=== PATIENT | male | born 1960 | race Caucasian/White ===

== ENCOUNTER 2016-11-04 20:04 | Emergency (ER) | payer MEDICARE, OTHER ==
[2016-11-04 21:03] VITALS: BP 150/86
[2016-11-04] MEDS ORDERED: HYDROcodone/ACETAMIN 5-325 MG* 1 TAB PO ONE (22:08)
[2016-11-04] MEDS ORDERED: Indomethacin CAP* 50 MG PO ONE (22:08)
[2016-11-04] MEDS ORDERED: Indomethacin CAP* 25 MG CAP ONE (22:13)
--- NOTE | 2016-11-04 22:14 | UC ---
Lower Extremity/Ankle HPI - HPI Summary HPI Summary: foot pain right side. Woke with it yesterday, no injury, today excruciating. Can 't stand the lightest touch on it. No break in skin. No prior similar pain. No other musculoskeletal complaint - History of Current Complaint Chief Complaint: UCLowerExtremity Stated Complaint: RT FOOT PAIN Time Seen by Provider: 11/04/16 22:02 Hx Obtained From: Patient Onset/Duration: Sudden Onset, Lasting Days - 2 Severity Initially: Moderate Severity Currently: Severe Aggravating Factor(s): Standing, Ambulation Alleviating Factor(s): Rest, Elevation Able to Bear Weight: Yes - but severe limping - Risk Factors Gout Risk Factors: Age Over 40, Male, Diabetes, Hyperlipidemia, Obesity DVT Risk Factors: Negative Septic Arthritis Risk Factor: Negative - Allergies/Home Medications Allergies/Adverse Reactions: Allergies Allergy/AdvReac Type Severity Reaction Status Date / Time Cheese Allergy Airway Verified 11/04/16 21:03 Obstruction Sulfa Drugs Allergy Difficulty Verified 11/04/16 21:03 Breathing Home Medications: Home Medications Acetaminop/Codeine 30 MG TAB* [Tylenol/Codeine 30 MG TAB*] 1 tab PO Q6H PRN [History Confirmed 11/04/16] PMH/Surg Hx/FS Hx/Imm Hx Endocrine History Of: Reports: Diabetes, Thyroid Disease - hypothyroidism Cardiovascular History Of: Reports: Cardiac Disorders - Pacemaker, Quadruple Bypass Respiratory History Of: Reports: COPD - Surgical History Surgical History: Yes Surgery Procedure, Year, and Place: Pacemaker, 2003, [facility]; Quaduple Bypass, 1998, [facility]; Spleenectomy, 1997, [facility]; Stribismus Repairs, ~60's and 70's - Family History Known Family History: Positive: Cardiac Disease Negative: Other - NO HISTORY OF GOUT - Social History Occupation: Disabled Lives: With Family Alcohol Use: Occasionally Substance Use Type: None Smoking Status (MU): Former Smoker Type: Cigarettes Length of Time of Smoking/Using Tobacco: 10 yrs Have You Smoked in the Last Year: No When Did the Patient Quit Smoking/Using Tobacco: 1999 Review of Systems Constitutional: Negative Skin: Negative Eyes: Negative ENT: Negative Respiratory: Negative Cardiovascular: Negative Gastrointestinal: Negative Genitourinary: Negative Motor: Negative Neurovascular: Negative Musculoskeletal: Arthralgia - right foot Neurological: Negative Psychological: Negative All Other Systems Reviewed And Are Negative: Yes Physical Exam Triage Information Reviewed: Yes Appearance: Well-Appearing, No Pain Distress, Well-Nourished, Obese Vital Signs: Initial Vital Signs Temp 98.9 F 11/04/16 20:56 Pulse 86 11/04/16 20:56 Resp 20 11/04/16 20:56 BP 150/86 11/04/16 20:56 Pulse Ox 93 11/04/16 20:56 Vital Signs Reviewed: Yes Eye Exam: Normal Neck exam: Normal Respiratory Exam: Normal Cardiovascular Exam: Normal Musculoskeletal Exam: Normal Neurological Exam: Normal Psychological Exam: Normal Skin Exam: Normal Lower Extremity Course/Dx - Differential Dx/Diagnosis Differential Diagnosis/HQI/PQRI: Fracture (Closed), Gout, Infection Provider Diagnoses: gout Discharge - Discharge Plan Condition: Stable Disposition: HOME Prescriptions: HYDROcodone/ACETAMIN 5-325 MG* [Hooks 5-325 TAB*] 1 - 2 tab PO Q6H PRN #20 tab MDD 6 tab PRN Reason: Pain Indomethacin CAP* [Indocin CAP*] 50 mg PO TID PRN #30 cap PRN Reason: foot pain Patient Education Materials: Gout (ED) Referrals: Joselyn Eckert MD [Primary Care Provider] -
== END 2016-11-04 22:22 | disposition home or self-care (01) ==
LOC: UCCORT 20:04
DX: M10.9 Gout, unspecified (principal); E66.9 Obesity, unspecified; Z95.0 Presence of cardiac pacemaker; Z95.1 Presence of aortocoronary bypass graft; Z87.891 Personal history of nicotine dependence
CPT/HCPCS: 99213; A9270-GY; G0463

== ENCOUNTER 2017-05-13 13:15 | Emergency (ER) | payer MEDICARE, MEDICAID ==
[2017-05-13 13:27] VITALS: BP 80/52
--- NOTE | 2017-05-13 14:05 | UC ---
Respiratory Complaint HPI - HPI Summary HPI Summary: cough x 3 days cough is dry , no upper resp. sx, no fever, no chills, no sob - History of Current Complaint Chief Complaint: UCRespiratory Stated Complaint: COUGH Time Seen by Provider: 05/13/17 13:47 Hx Obtained From: Patient Onset/Duration: Gradual Onset, Lasting Days - 3, Still Present Timing: Constant Severity Initially: Severe Severity Currently: Severe Character: Cough: Nonproductive Aggravating Factors: Exertion, Deep Breaths Alleviating Factors: Nothing Associated Signs And Symptoms: Negative: Dyspnea, Fever, Chills, Pleuritic Chest Pain, Wheezing, Hemoptysis, Dizziness, Calf Pain, Calf Swelling, Edema, URI, Nasal Congestion, Hoarseness, Sinus Discomfort - Allergies/Home Medications Allergies/Adverse Reactions: Allergies Allergy/AdvReac Type Severity Reaction Status Date / Time Cheese Allergy Airway Verified 05/13/17 13:20 Obstruction Penicillins Allergy Airway Verified 05/13/17 13:20 Obstruction Sulfa Drugs Allergy Difficulty Verified 05/13/17 13:20 Breathing PMH/Surg Hx/FS Hx/Imm Hx Previously Healthy: Yes Endocrine History: Diabetes Cardiovascular History: Cardiac Disease Respiratory History: COPD, Asthma - Surgical History Surgical History: Yes Surgery Procedure, Year, and Place: Pacemaker, 2003, [facility]; Quaduple Bypass, 1998, [facility]; Spleenectomy, 1997, [facility]; Stribismus Repairs, ~60's and 70's - Family History Known Family History: Positive: Cardiac Disease Negative: Other - NO HISTORY OF GOUT - Social History Alcohol Use: Occasionally Substance Use Type: None Smoking Status (MU): Former Smoker Type: Cigarettes Length of Time of Smoking/Using Tobacco: 10 yrs Have You Smoked in the Last Year: No When Did the Patient Quit Smoking/Using Tobacco: 25 years ago Review of Systems Constitutional: Negative Skin: Negative Eyes: Negative ENT: Negative Respiratory: Cough Cardiovascular: Negative Gastrointestinal: Negative All Other Systems Reviewed And Are Negative: Yes Physical Exam Triage Information Reviewed: Yes Appearance: Well-Appearing, No Pain Distress, Well-Nourished Vital Signs: Initial Vital Signs Temp 97.5 F 05/13/17 13:22 Pulse 83 05/13/17 13:22 Resp 20 05/13/17 13:22 BP 80/52 05/13/17 13:22 Pulse Ox 97 05/13/17 13:22 Vital Signs Reviewed: Yes Eyes: Positive: Conjunctiva Clear ENT: Positive: Normal ENT inspection, Hearing grossly normal, Pharynx normal Neck: Positive: Supple, Nontender, No Lymphadenopathy Respiratory: Positive: Chest non-tender, No accessory muscle use, Wheezing, Other: - dry hacking cough Cardiovascular: Positive: RRR, No Murmur, Pulses Normal Musculoskeletal Exam: Normal UC Diagnostic Evaluation - Laboratory O2 Sat by Pulse Oximetry: 97 Respiratory Course/Dx - Differential Dx/Diagnosis Provider Diagnoses: Bronchitis Discharge - Discharge Plan Condition: Stable Disposition: HOME Prescriptions: Azithromycin TAB* [Zithromax TAB (Z-DAVID) 250 mg #6 tabs] 2 tab PO .TODAY, THEN 1 DAILY #1 david Benzonatate [TESSALON 200 MG CAP] 200 mg PO Q8H #21 cap Guaifenesin-Codeine [Cheratussin AC] 10 ml PO Q8H #120 ml MDD 30 ml predniSONE TAB* [Deltasone TAB*] 40 mg PO DAILY #10 tab Patient Education Materials: Acute Bronchitis (ED) Referrals: Joselyn Eckert MD [Primary Care Provider] - 7 Days
== END 2017-05-13 14:20 | disposition home or self-care (01) ==
LOC: UCCORT 13:15
DX: J40 Bronchitis, not specified as acute or chronic (principal); E11.9 Type 2 diabetes mellitus without complications; I51.9 Heart disease, unspecified; J44.9 Chronic obstructive pulmonary disease, unspecified; Z88.0 Allergy status to penicillin; Z88.2 Allergy status to sulfonamides; Z87.891 Personal history of nicotine dependence
CPT/HCPCS: 99212; G0463

== ENCOUNTER 2018-09-10 15:50 | Emergency (ER) | payer MEDICARE, MEDICAID ==
[2018-09-10 16:47] VITALS: BP 129/69
--- NOTE | 2018-09-10 17:27 | UC ---
Knee Pain HPI - HPI Summary HPI Summary: Pt presents with c/o sudden onset of right knee pain that began early this morning at ~ 0100. Pt denies injury or hx of injury. Pt described pain as worse pain of his life. Pt drove self to clinic. - History of Current Complaint Chief Complaint: UCLowerExtremity Stated Complaint: RIGHT KNEE PAIN Time Seen by Provider: 09/10/18 17:17 Hx Obtained From: Patient Onset/Duration: Sudden Onset, Lasting Hours, Still Present Severity Initially: Severe Severity Currently: Severe Pain Intensity: 9 Character: Sharp, Aching Aggravating Factor(s): Movement, Weight Bearing, Prolonged Standing, Stairs Alleviating Factor(s): Nothing Associated Signs And Symptoms: Positive: Negative Able to Bear Weight: Yes - Risk Factors Septic Arthritis Risk Factor: Negative Gout Risk Factor: Male - Allergies/Home Medications Allergies/Adverse Reactions: Allergies Allergy/AdvReac Type Severity Reaction Status Date / Time cheese Allergy Airway Verified 09/10/18 16:30 Obstruction Penicillins Allergy Airway Verified 09/10/18 16:30 Obstruction Sulfa (Sulfonamide Allergy Difficulty Verified 09/10/18 16:30 Antibiotics) Breathing Home Medications: Home Medications Benzonatate [TESSALON 200 MG CAP] 200 mg PO Q8H PRN 09/10/18 [History Confirmed 09/10/18] Codeine Phosphate/Guaifenesin [Cheratussin AC] 10 ml PO Q8H PRN MDD 30 ml [History Confirmed 09/10/18] Fenofibrate 40 mg PO BEDTIME 09/10/18 [History Confirmed 09/10/18] Lisinopril [Zestril] 10 mg PO DAILY 09/10/18 [History Confirmed 09/10/18] Metoprolol Tartrate TAB* [Lopressor TAB*] 50 mg PO DAILY 09/10/18 [History Confirmed 09/10/18] Simvastatin 20 mg PO BEDTIME 09/10/18 [History Confirmed 09/10/18] Trazodone HCl 150 mg PO BEDTIME 09/10/18 [History Confirmed 09/10/18] PMH/Surg Hx/FS Hx/Imm Hx Previously Healthy: No Cardiovascular History: Cardiac Disease, Hypertension, Pacemaker/ICD - Surgical History Surgical History: Yes Surgery Procedure, Year, and Place: Pacemaker, 2003, [facility]; Quaduple Bypass, 1998, [facility] [place]; Spleenectomy, 1997, [facility]; Stribismus Repairs, ~60's and 70's - Family History Known Family History: Positive: Cardiac Disease Negative: Other - NO HISTORY OF GOUT - Social History Occupation: Unemployed Lives: Alone Alcohol Use: Rare Substance Use Type: None Smoking Status (MU): Former Smoker Type: Cigarettes Length of Time of Smoking/Using Tobacco: 10 yrs Have You Smoked in the Last Year: No When Did the Patient Quit Smoking/Using Tobacco: 25 years ago Review of Systems All Other Systems Reviewed And Are Negative: Yes Constitutional: Positive: Negative Skin: Positive: Negative Eyes: Positive: Negative ENT: Positive: Negative Respiratory: Positive: Negative Cardiovascular: Positive: Negative Gastrointestinal: Positive: Negative Genitourinary: Positive: Negative Motor: Positive: Negative Neurovascular: Positive: Negative Musculoskeletal: Positive: Arthralgia - right lateral knee, Edema - right lower extremity. Pre-existing at base line, Myalgia - right lateral knee Neurological: Positive: Negative Psychological: Positive: Negative Is Patient Immunocompromised?: No Physical Exam Triage Information Reviewed: Yes Appearance: Well-Appearing Vital Signs: Initial Vital Signs Temp 98.1 F 09/10/18 16:41 Pulse 75 09/10/18 16:41 Resp 20 09/10/18 16:41 BP 129/69 09/10/18 16:41 Pulse Ox 95 09/10/18 16:41 Vital Signs Reviewed: Yes Eye Exam: Normal ENT Exam: Normal ENT: Positive: Hearing grossly normal Neck exam: Normal Respiratory: Positive: No respiratory distress Musculoskeletal Exam: Normal Musculoskeletal: Positive: Strength Intact, ROM Intact, Edema @ - non pitting right lower extremity. Pre-existing at base line, Other: - c/o right lateral knee pain and posterior calf tenderness Neurological Exam: Normal Psychological Exam: Normal Skin Exam: Normal, Other - no erythema Knee Pain Course/Dx - Course Course Of Treatment: Pt was advised to go to closest ER for further evaluation and testing. Pt verbalized understanding and agreed to plan of care. - Differential Dx/Diagnosis Differential Diagnosis/HQI/PQRI: Bursitis, DVT Provider Diagnosis: Right knee pain Discharge - Sign-Out/Discharge Documenting (check all that apply): Patient Departure All imaging exams completed and their final reports reviewed: No Studies - Discharge Plan Condition: Stable Disposition: HOME-RECOMMEND TO ED Patient Education Materials: Knee Pain (ED) Referrals: Mona Craven MD [Primary Care Provider] - As Soon As Possible Additional Instructions: PLEASE GO DIRECTLY TO THE CLOSEST EMERGENCY ROOM FOR FURTHER EVALUATION AND TESTING. - Billing Disposition and Condition Condition: STABLE Disposition: Home-Recommend to ED
== END 2018-09-10 17:35 | disposition home health service (06) ==
LOC: UCCORT 15:50
DX: M25.561 Pain in right knee (principal); Z88.0 Allergy status to penicillin; Z88.2 Allergy status to sulfonamides; I10 Essential (primary) hypertension; I51.9 Heart disease, unspecified; Z95.811 Presence of heart assist device; Z87.891 Personal history of nicotine dependence
CPT/HCPCS: 99212; G0463

== ENCOUNTER 2018-12-16 15:07 | Emergency (ER) | payer MEDICARE, MEDICAID ==
[2018-12-16 15:27] VITALS: BP 161/96
--- NOTE | 2018-12-16 15:49 | UC ---
Skin Complaint HPI - HPI Summary HPI Summary: Patient has had a paronychia of his distal left index finger over the past week. He was seen in the emergency room however was told that it was not ready to be incised. Today it's more swollen, tender and with exudate underneath the skin. - History of Current Complaint Chief Complaint: UCUpperExtremity Time Seen by Provider: 12/16/18 15:32 Stated Complaint: LEFT POINTER FINGER CONCERN Hx Obtained From: Patient Onset/Duration: Gradual Onset Skin Exposure Onset/Duration: Days Ago - 1 week ago started developing. Timing: Constant Onset Severity: Mild Current Severity: Moderate Pain Intensity: 5 Location: Discrete - Distal left index finger. Character: Swelling, Pain, Redness Aggravating Factor(s): Touch Alleviating Factor(s): Nothing Associated Signs & Symptoms: Positive: Negative - Allergy/Home Medications Allergies/Adverse Reactions: Allergies Allergy/AdvReac Type Severity Reaction Status Date / Time cheese Allergy Airway Verified 09/10/18 16:30 Obstruction Penicillins Allergy Airway Verified 09/10/18 16:30 Obstruction Sulfa (Sulfonamide Allergy Difficulty Verified 09/10/18 16:30 Antibiotics) Breathing Home Medications: Home Medications Canagliflozin (NF) [Invokana (NF)] 100 mg PO DAILY 12/16/18 [History Confirmed 12/16/18] PMH/Surg Hx/FS Hx/Imm Hx Previously Healthy: Yes - Surgical History Surgical History: Yes Surgery Procedure, Year, and Place: Pacemaker, 2003, [facility]; Quaduple Bypass, 1998, [facility]; Spleenectomy, 1997, [facility]; Stribismus Repairs, ~60's and 70's - Family History Known Family History: Positive: Cardiac Disease Negative: Other - NO HISTORY OF GOUT - Social History Alcohol Use: Rare Substance Use Type: None Smoking Status (MU): Former Smoker Type: Cigarettes Length of Time of Smoking/Using Tobacco: 10 yrs Have You Smoked in the Last Year: No When Did the Patient Quit Smoking/Using Tobacco: 25 years ago Review of Systems All Other Systems Reviewed And Are Negative: Yes Constitutional: Positive: Negative Skin: Positive: Other - Paronychia left index finger with swelling, erythema, tenderness on palpation. Eyes: Positive: Negative Motor: Positive: Negative Neurovascular: Positive: Negative Musculoskeletal: Positive: Other: - Swelling of the distal left index finger. Neurological: Positive: Negative Psychological: Positive: Negative Is Patient Immunocompromised?: No Physical Exam Triage Information Reviewed: Yes Appearance: Well-Appearing, No Pain Distress, Well-Nourished Vital Signs: Initial Vital Signs Temp 98 F 12/16/18 15:25 Pulse 76 12/16/18 15:25 Resp 18 12/16/18 15:25 BP 161/96 12/16/18 15:25 Pulse Ox 97 12/16/18 15:25 Vital Signs Reviewed: Yes Musculoskeletal Exam: Normal Musculoskeletal: Positive: Strength Intact, ROM Intact, Other: - The peripheral pulses neuro sensation Refill. Neurological Exam: Normal Neurological: Positive: Alert, Muscle Tone Normal Psychological Exam: Normal Skin: Positive: Other - Significant for a paronychia left distal index finger with swelling, erythema and tenderness on palpation. Procedures - Incision and Drainage Left Distal Finger Anesthesia: Other - area was cleansed with Betadine. It was then incised using the #11 blade and yellow pus was drained. Band-Aid was applied. Patient tolerated procedure well. Instrument(s): Scalpel, Other - #11 scalpel Course/Dx - Course Course Of Treatment: He has been comfortable here. He has had a paronychia developing over the past week. I incised and drained that here. He is to continue with warm salt water soaks 4-6 times a day with a definite recheck with his primary care provider if no improvement or worsening symptoms. - Diagnoses Provider Diagnosis: Paronychia of finger Discharge - Sign-Out/Discharge Documenting (check all that apply): Patient Departure All imaging exams completed and their final reports reviewed: No Studies - Discharge Plan Condition: Good Disposition: HOME Patient Education Materials: Paronychia (ED) Referrals: Mona Benton NP [Primary Care Provider] - Additional Instructions: Elevate as much as possible, continue warm salt water soaks 4-6 times a day. Take Tylenol for pain or Motrin. Follow-up with your primary care provider if no improvement in 3 or 4 days. If he develops any red streaks up her hand, fever or chills go to the emergency room. - Billing Disposition and Condition Condition: GOOD Disposition: Home
== END 2018-12-16 15:47 | disposition home or self-care (01) ==
LOC: UCCORT 15:07
DX: L03.012 Cellulitis of left finger (principal); Z88.2 Allergy status to sulfonamides; Z88.0 Allergy status to penicillin; Z91.011 Allergy to milk products; Z87.891 Personal history of nicotine dependence
CPT/HCPCS: 10060; 99211; G0463

== ENCOUNTER 2019-05-13 19:19 | Emergency (ER) | payer MEDICARE, MEDICAID ==
[2019-05-13 19:53] VITALS: BP 166/91
--- NOTE | 2019-05-13 20:01 | UC ---
Respiratory Complaint HPI - HPI Summary HPI Summary: Pt presents with c/o worsening cough, upper respiratory congestion, malasie X 1 week. Pt has hx of DM, CAD, emphysema, and splenectomy. - History of Current Complaint Chief Complaint: UCRespiratory Stated Complaint: COUGH,CONGESTION Time Seen by Provider: 05/13/19 19:56 Hx Obtained From: Patient Onset/Duration: Gradual Onset, Lasting Weeks, Still Present Timing: Constant Severity Initially: Mild Severity Currently: Moderate Pain Intensity: 1 Character: Cough: Nonproductive Aggravating Factors: Deep Breaths, Recumbent Position Alleviating Factors: Nothing Associated Signs And Symptoms: Positive: Wheezing, Nasal Congestion - Risk Factors Pulmonary Embolism Risk Factors: Negative Cardiac Risk Factors: Diabetes, Prior AL, CAD Pseudomonas Risk Factors: Chronic Lung Disease Tuberculosis Risk Factors: Immune Deficienty - Allergies/Home Medications Allergies/Adverse Reactions: Allergies Allergy/AdvReac Type Severity Reaction Status Date / Time cheese Allergy Airway Verified 05/13/19 19:46 Obstruction Penicillins Allergy Airway Verified 05/13/19 19:46 Obstruction Sulfa (Sulfonamide Allergy Difficulty Verified 05/13/19 19:46 Antibiotics) Breathing PMH/Surg Hx/FS Hx/Imm Hx Previously Healthy: No Endocrine History: Diabetes, Dyslipidemia Cardiovascular History: Cardiac Disease, Pacemaker/ICD Respiratory History: Other - emphysema - Surgical History Surgical History: Yes Surgery Procedure, Year, and Place: Pacemaker, 2003, [facility]; Quaduple Bypass, 1998, [facility]; Spleenectomy, 1997, [facility]; Stribismus Repairs, ~60's and 70's - Family History Known Family History: Positive: Cardiac Disease Negative: Other - NO HISTORY OF GOUT - Social History Occupation: Disabled Lives: With Family Alcohol Use: None Substance Use Type: None Smoking Status (MU): Former Smoker Type: Cigarettes Length of Time of Smoking/Using Tobacco: 10 yrs Have You Smoked in the Last Year: No When Did the Patient Quit Smoking/Using Tobacco: 25 years ago Review of Systems All Other Systems Reviewed And Are Negative: Yes Constitutional: Positive: Fatigue Skin: Positive: Negative Eyes: Positive: Negative ENT: Positive: Sinus Congestion Respiratory: Positive: Shortness Of Breath, Cough Cardiovascular: Positive: Negative Gastrointestinal: Positive: Negative Genitourinary: Positive: Negative Motor: Positive: Negative Neurovascular: Positive: Negative Musculoskeletal: Positive: Negative Neurological: Positive: Negative Psychological: Positive: Negative Is Patient Immunocompromised?: No Physical Exam Triage Information Reviewed: Yes Appearance: Ill-Appearing Vital Signs: Initial Vital Signs Temp 99.1 F 05/13/19 19:47 Pulse 85 05/13/19 19:47 Resp 18 05/13/19 19:47 BP 166/91 05/13/19 19:47 Pulse Ox 97 05/13/19 19:47 Vital Signs Reviewed: Yes Eye Exam: Normal ENT: Positive: Nasal congestion Dental Exam: Normal Neck exam: Normal Respiratory: Positive: Decreased breath sounds, Wheezing Cardiovascular Exam: Normal Musculoskeletal Exam: Normal Neurological Exam: Normal Psychological Exam: Normal Skin Exam: Normal Respiratory Course/Dx - Course Course Of Treatment: Due to pt's PMH, I discussed the use of antibiotics due to risk of infection. - Differential Dx/Diagnosis Differential Diagnosis/HQI/PQRI: Bronchitis, Exacerbation Of COPD Provider Diagnosis: Bronchitis Discharge - Sign-Out/Discharge Documenting (check all that apply): Patient Departure All imaging exams completed and their final reports reviewed: No Studies - Discharge Plan Condition: Stable Disposition: HOME Prescriptions: DOXYcycline CAP(*) [DOXYcycline 100MG CAP(*)] 100 mg PO Q12H #20 cap Patient Education Materials: Acute Bronchitis (ED) Referrals: Mona Benton NP [Primary Care Provider] - If Needed - Billing Disposition and Condition Condition: STABLE Disposition: Home
== END 2019-05-13 20:09 | disposition home or self-care (01) ==
LOC: UCCORT 19:19
DX: J40 Bronchitis, not specified as acute or chronic (principal); J43.9 Emphysema, unspecified; E11.9 Type 2 diabetes mellitus without complications; I25.10 Atherosclerotic heart disease of native coronary artery without angina pectoris; I25.2 Old myocardial infarction; Z88.0 Allergy status to penicillin; Z88.2 Allergy status to sulfonamides; Z95.0 Presence of cardiac pacemaker; Z87.891 Personal history of nicotine dependence
CPT/HCPCS: 99212; G0463